=== PATIENT | female | born 1975 | race African-American/Black ===

== ENCOUNTER 2017-01-10 16:39 | Emergency (ER) | payer SELFPAY ==
[~2017-01-10] VITALS: Ht 162.6 cm; Wt 91.0 kg
[2017-01-10] MEDS ORDERED: MORPHINE SULFATE 4 MG/ML CPJ (NOT FOR IM USE) IV ONE (17:15)
[2017-01-10 17:20] VITALS: BP 129/63
[2017-01-10 17:52] LABS: EOSINOPHILS % 1.5 % (0.0-5.0); HEMOGLOBIN. 14.1 g/dL (12.0-16.0); LYMPHOCYTES % 38.3 % (20.0-50.0); MEAN CORPUSCULAR HEMOGLOBIN 34.8 pg (28.0-32.0); MEAN CORPUSCULAR VOLUME 101.3 fL (81.0-99.0); MEAN PLATELET VOLUME 9.6 fl (7.4-10.4); MONOCYTES % 8.7 % (2.0-8.0); NEUTROPHILS % 50.5 % (40.0-76.0); PLATELET 157 x1000/uL (130-400); RED BLOOD CELL COUNT 4.05 mill/uL (4.2-5.4); RED CELL DISTRIBUTION WIDTH 13.7 % (11.6-14.6)
[2017-01-10 17:56] LABS: PROTHROMBIN TIME 10.5 sec (9.4-11.6)
[2017-01-10 18:05] LABS: CARBON DIOXIDE 28 mEq/L (21-32); CHLORIDE 107 mEq/L (98-107)
[2017-01-10 18:08] LABS: TROPONIN I < 0.02 ng/mL (0.00-0.04)
[2017-01-10 18:11] LABS: HCG SCREEN NEGATIVE
[2017-01-10] MEDS ORDERED: ACETAMINOPHEN WITH CODEINE 300/30MG TABLET PO ONE (18:45)
== END 2017-01-10 19:58 | disposition left against medical advice (07) ==
LOC: ER 18:46
DX: R09.1 Pleurisy (principal); F17.200 Nicotine dependence, unspecified, uncomplicated
CPT/HCPCS: 36415; 71010; 80053; 83880; 84484; 84703; 85025; 85610; 93005; 99285; 99406; J2270; Z7610

== ENCOUNTER 2018-11-13 20:34 | Emergency (ER) | payer MEDICAID ==
[~2018-11-13] VITALS: Ht 162.6 cm; Wt 93.0 kg
[2018-11-13] MEDS ORDERED: KETOROLAC 30MG/ML VIAL IV STA (21:22)
[2018-11-13] MEDS ORDERED: SODIUM CHLORIDE 0.9% 1,000 ML IV ONE (21:22)
[2018-11-13] MEDS ORDERED: ALBUTEROL (0.083%) 2.5MG/3ML NEB HHN STA (21:22)
[2018-11-13 22:00] LABS: CLARITY URINE CLEAR (CLEAR); COLOR URINE YELLOW (YELLOW); KETONES URINE NEGATIVE (NEGATIVE); LEUKOCYTE ESTERASE URINE NEGATIVE (NEGATIVE); NITRITE URINE NEGATIVE (NEGATIVE); OCCULT BLOOD URINE NEGATIVE (NEGATIVE); PROTEIN URINE NEGATIVE (NEGATIVE); SPECIFIC GRAVITY URINE 1.011 (1.005-1.030); UROBILINOGEN URINE 0.2 E.U./dL (0.2-1.0)
[2018-11-13 23:39] LABS: BASOPHILS % 1.1 % (0.0-2.0); EOSINOPHILS % 1.6 % (0.0-5.0); HEMOGLOBIN. 13.2 g/dL (12.0-16.0); LYMPHOCYTES % 34.2 % (20.0-50.0); MEAN CORPUSCULAR HEMOGLOBIN 35.3 pg (28.0-32.0); MEAN CORPUSCULAR VOLUME 101.3 fL (81.0-99.0); MEAN PLATELET VOLUME 9.1 fl (7.4-10.4); MONOCYTES % 14.7 % (2.0-8.0); NEUTROPHILS % 48.4 % (40.0-76.0); PLATELET 138 x1000/uL (130-400); RED BLOOD CELL COUNT 3.75 mill/uL (4.2-5.4); RED CELL DISTRIBUTION WIDTH 13.2 % (11.6-14.6)
[2018-11-13 23:47] LABS: CHLORIDE 109 mEq/L (98-107)
[2018-11-14] MEDS ORDERED: KETOROLAC 15MG/ML VIAL IV ONE (00:15)
[2018-11-14 00:42] VITALS: BP 115/45
== END 2018-11-14 00:45 | disposition home or self-care (01) ==
LOC: ER 20:34
DX: J18.9 Pneumonia, unspecified organism (principal); I51.9 Heart disease, unspecified; F17.210 Nicotine dependence, cigarettes, uncomplicated
CPT/HCPCS: 36415; 71045; 80053; 81003; 81025; 84484; 85025; 93005; 94640; 96361; 96374; 96376; 99284; J1885; J7030; J7611; Z7610

== ENCOUNTER 2022-01-30 13:27 | Emergency (ER) | payer MEDICAID ==
[~2022-01-30] VITALS: Ht 162.6 cm; Wt 97.0 kg
[2022-01-30 13:41] VITALS: BP 174/76
[2022-01-30] MEDS ORDERED: ACETAMINOPHEN WITH CODEINE 300/30MG TABLET PO ONE (16:30)
[2022-01-30] MEDS ORDERED: IBUP-2029 MT (17:51)
[2022-01-30] MEDS ORDERED: AMOX1TAB16 MT (17:51)
[2022-01-30] MEDS ORDERED: SULF1TAB48 MT (17:51)
== END 2022-01-30 18:24 | disposition home or self-care (01) ==
LOC: ER 13:27
DX: N76.4 Abscess of vulva (principal); J45.909 Unspecified asthma, uncomplicated
CPT/HCPCS: 99283

== ENCOUNTER 2023-02-27 10:09 | Emergency (ER) | payer MEDICAID ==
[~2023-02-27] VITALS: Ht 152.4 cm; Wt 81.0 kg
[~2023-02-27 10:09] MED LIST: AMOX1TAB16 MT; IBUP-2029 MT; SULF1TAB48 MT
[2023-02-27 10:14] VITALS: O2SAT 100
[2023-02-27] MEDS ORDERED: KETOROLAC 30MG/ML VIAL IM ONE (10:30)
[2023-02-27] MEDS ORDERED: PREDNISONE 5MG TABLET PO ONE (10:30)
[2023-02-27] MEDS ORDERED: DIPH25CA83 MT (11:25)
[2023-02-27] MEDS ORDERED: HYDR99LO MT (11:25)
[2023-02-27 12:09] VITALS: BP 122/81; PULSE 81; RESP 20; TEMP 99
== END 2023-02-27 12:09 | disposition home or self-care (01) ==
LOC: ER 10:44
DX: S40.861A Insect bite (nonvenomous) of right upper arm, initial encounter (principal); W57.XXXA Bitten or stung by nonvenomous insect and other nonvenomous arthropods, initial encounter; Y93.89 Activity, other specified; Y92.89 Other specified places as the place of occurrence of the external cause; Y99.8 Other external cause status
CPT/HCPCS: 81025; 96372; 99283; J7512; J1885; Z7610

== ENCOUNTER 2024-03-26 12:28 | Emergency (ER) | payer SELFPAY ==
[~2024-03-26] VITALS: Ht 167.6 cm; Wt 91.0 kg
[~2024-03-26 12:28] MED LIST changes: +DIPH25CA83 MT; +HYDR99LO MT
[2024-03-26 12:52] VITALS: TEMP 97.9; O2SAT 99
[2024-03-26 13:56] LABS: CARBON DIOXIDE 27 mEq/L (21-32); CHLORIDE 108 mEq/L (98-107); SODIUM 140 mEq/L (136-145)
[2024-03-26 13:57] LABS: CALCIUM 9.3 mg/dL (8.7-10.4)
[2024-03-26 14:02] LABS: GLUCOSE 90 mg/dL (70-105); UREA NITROGEN BLOOD 6 mg/dL (9-23)
[2024-03-26 14:05] LABS: TROPONIN I HIGH SENSITIVITY < 4 ng/L (3.0-34)
[2024-03-26 14:24] LABS: BASOPHILS % 0.8 % (0.0-2.0); HEMATOCRIT. 41.9 % (36.0-48.0); HEMOGLOBIN. 14.7 g/dL (12.0-16.0); LYMPHOCYTES % 33.5 % (20.0-50.0); MEAN CORPUSCULAR HGB CONC 35.1 g/dL (31.0-37.0); MEAN CORPUSCULAR VOLUME 99.8 fL (81.0-99.0); MEAN PLATELET VOLUME 9.6 fl (7.4-10.4); MONOCYTES % 6.7 % (2.0-8.0); PLATELET 218 x1000/uL (130-400); RED CELL DISTRIBUTION WIDTH 13.4 % (11.6-14.6); WHITE BLOOD COUNT 5.7 x1000/uL (4.5-11.0)
[2024-03-26] MEDS ORDERED: LORA-249 MT (15:10)
[2024-03-26 16:33] VITALS: BP 145/89; PULSE 85; RESP 19; O2SAT 98
== END 2024-03-26 16:40 | disposition home or self-care (01) ==
LOC: ER 12:28
DX: R07.9 Chest pain, unspecified (principal); J90 Pleural effusion, not elsewhere classified; F41.9 Anxiety disorder, unspecified; J44.89 Other specified chronic obstructive pulmonary disease; Z79.899 Other long term (current) drug therapy
CPT/HCPCS: 36415; 71045; 80048; 84484; 85025; 93005; 99285

== ENCOUNTER 2025-03-14 02:36 | Emergency (ER) | payer MEDICAID ==
[~2025-03-14] VITALS: Ht 162.6 cm; Wt 89.0 kg
[~2025-03-14 02:36] MED LIST changes: +IBUP-1455 MT; -IBUP-2029 MT; +LORA-249 MT
[2025-03-14 03:51] LABS: BASOPHILS % 1.0 % (0.0-2.0); EOSINOPHILS % 1.2 % (0.0-5.0); HEMATOCRIT. 44.2 % (36.0-48.0); HEMOGLOBIN. 15.1 g/dL (12.0-16.0); LYMPHOCYTES % 32.8 % (20.0-50.0); MEAN PLATELET VOLUME 8.7 fl (7.4-10.4); MONOCYTES % 6.8 % (2.0-8.0); NEUTROPHILS % 58.2 % (40.0-76.0); PLATELET 181 x1000/uL (130-400); RED BLOOD CELL COUNT 4.36 mill/uL (4.2-5.4); RED CELL DISTRIBUTION WIDTH 13.4 % (11.6-14.6)
[2025-03-14 04:03] LABS: CREATININE 0.9 mg/dL (0.6-1.0); UREA NITROGEN BLOOD < 5 mg/dL (9-23)
[2025-03-14 04:04] LABS: TROPONIN I HIGH SENSITIVITY < 4 ng/L (3.0-34)
[2025-03-14 04:05] LABS: ASPARTATE AMINOTRANSFERASE 13 IU/L (<34); BILIRUBIN DIRECT < 0.1 mg/dL (<=3.0); BILIRUBIN TOTAL 0.3 mg/dL (0.1-1.0); PROTEIN TOTAL 7.1 g/dL (6.0-8.3)
[2025-03-14] MEDS: MAGNESIUM/ALUMINUM HYDROXIDE/SIMETHICONE 30ML UDC PO ONE (04:39)
[2025-03-14] MEDS: ONDANSETRON HCL 4MG/2ML INJ IV ONE (04:39)
[2025-03-14] MEDS: FAMOTIDINE 20MG TABLET PO ONE (04:39)
[2025-03-14] MEDS: KETOROLAC 30MG/ML VIAL IV ONE (04:40)
[2025-03-14 04:50] LABS: HCG SCREEN NEGATIVE
[2025-03-14 05:25] VITALS: PULSE 78; RESP 16; O2SAT 95
[2025-03-14] MEDS: IPRATROPIUM/ALBUTEROL 0.5-3(2.5)MG/3ML NEB HHN ONE (05:25)
[2025-03-14] MEDS: PREDNISONE 20MG TABLET PO ONE (05:33)
[2025-03-14] MEDS ORDERED: P50 MT (05:53)
[2025-03-14] MEDS ORDERED: IBUP-1455 MT (05:53)
[2025-03-14] MEDS ORDERED: ALBU18HF2 IH (05:53)
[2025-03-14 06:14] VITALS: BP 125/62; PULSE 94; RESP 13; TEMP 36.9; O2SAT 97
== END 2025-03-14 06:15 | disposition home or self-care (01) ==
LOC: ER 02:36
DX: J20.9 Acute bronchitis, unspecified (principal); R07.89 Other chest pain; F17.200 Nicotine dependence, unspecified, uncomplicated; J44.0 Chronic obstructive pulmonary disease with (acute) lower respiratory infection; Z55.6 Problems related to health literacy; Z20.822 Contact with and (suspected) exposure to COVID-19
CPT/HCPCS: 80076; 80048; 81025; 80320; 84703; 83690; 85025; 84484; 36415; 71045; 94640; 93005; 96374; 96375; 99285; 87426; J7512; J1885; J2405; Z7610 ×4; 94070; G0480